=== PATIENT | female | born 1965 | race Caucasian/White ===

== ENCOUNTER 2020-07-11 07:57 | Outpatient (REF) | payer OTHER, SELFPAY ==
--- NOTE | 2020-07-11 08:04 | MM_ITS ---
EXAMINATION: BONE DENSITOMETRY CLINICAL INDICATION: Osteoporosis. COMPARISON: Previous BD dated 05/06/2017 and baseline BD dated 07/25/2009. TECHNIQUE: Using a [employer] DXA System (software version: 13.1) manufactured by [employer], dual-energy x-ray absorptiometry was performed of the lumbar spine and left hip. The images are of good technical quality. Summary results are attached. FINDINGS: AP SPINE L1-L2 (excluding L3 and L4): The data of L1-L4 has been changed to exclude the L3 and L4 vertebral bodies, because degenerative changes at these levels may cause overestimation of lumbar spine density. Current: BMD 0.890 g/cm2, Z-score -0.9, T-score -2.3, osteopenia, 4.5% decrease from previous, 14.0% decrease from baseline (<5% change is not significant). Prior: BMD 0.932 g/cm2. Baseline: BMD 1.035 g/cm2. LEFT FEMUR, NECK: Current: BMD 0.725 g/cm2, Z-score -0.9, T-score -2.2, osteopenia. Prior: BMD 0.754 g/cm2. Baseline: BMD 0.846 g/cm2. LEFT FEMUR, TOTAL: Current: BMD 0.736 g/cm2, Z-score -1.1, T-score -2.2, osteopenia, 1.1% decrease from previous, 13.1% decrease from baseline (<5% change is not significant). Prior: BMD 0.744 g/cm2. Baseline: BMD 0.847 g/cm2. IDENTIFIED RISK FACTORS: Early menopause, height loss, low body weight, secondary osteoporosis. HISTORY OF FRACTURE: None listed. MEDICATIONS: Calcium. MM/XR DEXA axial skeleton IMPRESSION: 1. DIAGNOSIS: Osteopenia based on the lowest T-score value of -2.3 in the lumbar spine applying World Health Organization criteria. 2. 10-YEAR FRACTURE RISK PREDICTION, FRAX: Major osteoporotic fracture (clinical spine, forearm, hip or shoulder) 6.5%. Hip fracture 1.2%. 3. Treatment Recommendations: NOF guidelines recommend consideration for treatment in postmenopausal women and men age 50 and older presenting with the following: -A hip or vertebral (clinical or morphometric) fracture. -T-score less than or equal to -2.5 at the femoral neck or spine after appropriate evaluation to exclude secondary causes. -Low bone mass at the hip or spine and a 10-year fracture probability by FRAX of greater than or equal to 3% for hip fracture or greater than or equal to 20% for major osteoporotic fracture based on the [place] adapted WHO algorithm. 4. Other Recommendations: All treatment decisions require clinical judgment and consideration of individual patient factors, including patient preferences, comorbidities, previous drug use, risk factors not captured in the FRAX model (e.g. frailty, falls, vitamin D deficiency, increased bone turnover, interval significant decline in bone density) and possible under or overestimation of fracture risk by FRAX. Additional medical evaluation for secondary cause of low bone mineral density may be appropriate. FUTURE SCAN RECOMMENDATION: People with diagnosed cases of osteoporosis or at high risk for fracture should have regular bone mineral density tests. For patients eligible for Medicare, routine testing is allowed once every 2 years. The testing frequency can be increased to one year for patients who have rapidly progressing disease, those who are receiving or discontinuing medical therapy to restore bone mass, or have additional risk factors.
== END 2020-07-11 07:58 | disposition home or self-care (01) ==
LOC: HO.MAMMO 07:57
PROVIDERS: PCP Nurse Practitioner Family; Visit Provider Nurse Practitioner Family
DX: M81.0 Age-related osteoporosis without current pathological fracture (principal)
CPT/HCPCS: 77080

== ENCOUNTER 2020-11-01 08:38 | Outpatient (REF) | payer OTHER, SELFPAY ==
--- NOTE | ~2020-11-01 | MM_ITS ---
EXAMINATION: MM SCREENING DIGITAL BREAST TOMOSYNTHESIS, BILATERAL CLINICAL INFORMATION: Screening. Asymptomatic. The lifetime risk of breast cancer based on the Tyrer-Cuzick Model is 6.1%. COMPARISON: Mammography: July 05, 2019 and studies dating back to September 23, 2011 TECHNIQUE: Digital mammography is performed in craniocaudal and mediolateral oblique views along with computer-aided detection (CAD). Digital breast tomosynthesis is performed in implant-displaced craniocaudal and implant-displaced mediolateral oblique views along with computer-aided detection (CAD). Synthesized 2D images are generated from the tomosynthesis. FINDINGS: The breasts are heterogeneously dense, which may obscure small masses (ACR BI-RADS breast composition Category c). There are no significant masses, abnormal calcifications, or other abnormalities. Retropectoral silicone implants seen bilaterally. MM/MM tomosynthesis screen imp BI IMPRESSION: There are no significant changes from prior study. ASSESSMENT: BI-RADS 1: Negative RECOMMENDATION: Routine annual mammography screening. This patient's information was entered into a reminder system with a target due date for their next mammogram.
== END 2020-11-01 08:39 | disposition home or self-care (01) ==
LOC: HO.MAMMO 08:38
PROVIDERS: PCP Nurse Practitioner Family; Visit Provider Nurse Practitioner Family
DX: Z12.31 Encounter for screening mammogram for malignant neoplasm of breast (principal)
CPT/HCPCS: 77063; 77067

== ENCOUNTER 2021-11-17 07:29 | Outpatient (REF) | payer OTHER, SELFPAY ==
--- NOTE | ~2021-11-17 | MM_ITS ---
EXAMINATION: MM SCREENING DIGITAL BREAST TOMOSYNTHESIS, BILATERAL CLINICAL INFORMATION: Screening. Asymptomatic. The lifetime risk of breast cancer based on the Tyrer-Cuzick Model is 6%. COMPARISON: Mammography: 11/01/2020, 07/05/2019, 05/12/2018 TECHNIQUE: Digital mammography is performed in craniocaudal and mediolateral oblique views along with computer-aided detection (CAD). Digital breast tomosynthesis is performed in implant-displaced craniocaudal and implant-displaced mediolateral oblique views along with computer-aided detection (CAD). Synthesized 2D images are generated from the tomosynthesis. FINDINGS: There are scattered areas of fibroglandular density (ACR BI-RADS breast composition Category b). Implant contours are smooth and similar to prior study. Parenchymal pattern is similar to prior exams. No interval mass or architectural abnormality or abnormal calcifications. The axilla and skin contours are unremarkable. MM/MM tomosynthesis screen imp BI IMPRESSION: No mammographic evidence of malignancy. ASSESSMENT: BI-RADS 1: Negative RECOMMENDATION: Routine annual mammography screening. This patient's information was entered into a reminder system with a target due date for their next mammogram.
== END 2021-11-17 07:30 | disposition home or self-care (01) ==
LOC: HO.MAMMO 07:29
PROVIDERS: PCP Nurse Practitioner Family; Visit Provider Nurse Practitioner Family
DX: Z12.31 Encounter for screening mammogram for malignant neoplasm of breast (principal)
CPT/HCPCS: 77063; 77067

== ENCOUNTER 2022-07-12 08:44 | Outpatient (REF) | payer OTHER, SELFPAY ==
--- NOTE | ~2022-07-12 | MM_ITS ---
EXAMINATION: BONE DENSITOMETRY CLINICAL INDICATION: Encounter for screening for osteoporosis. COMPARISON: Previous BD dated 07/11/2020 and baseline BD dated 07/25/2009. TECHNIQUE: Using a [employer] DXA System (software version: 13.1) manufactured by [employer], dual-energy x-ray absorptiometry was performed of the lumbar spine and left hip. The images are of good technical quality. Summary results are attached. FINDINGS: AP SPINE L1-L2 (excluding L3 and L4): The data of L1-L4 has been changed to exclude the L3 and L4 vertebral bodies, because degenerative sclerosis at these levels may cause overestimation of lumbar spine density. Current: BMD 0.875 g/cm2, Z-score -1.0, T-score -2.4, osteopenia, 1.7% decrease from previous, 15.5% decrease from baseline (<5% change is not significant). Prior: BMD 0.890 g/cm2. Baseline: BMD 1.035 g/cm2. LEFT FEMUR, NECK: Current: BMD 0.724 g/cm2, Z-score -0.8, T-score -2.3, osteopenia. Prior: BMD 0.725 g/cm2. Baseline: BMD 0.846 g/cm2. LEFT FEMUR, TOTAL: Current: BMD 0.732 g/cm2, Z-score -1.1, T-score -2.2, osteopenia, 0.5% decrease from previous, 13.6% decrease from baseline (<5% change is not significant). Prior: BMD 0.736 g/cm2. Baseline: BMD 0.847 g/cm2. IDENTIFIED RISK FACTORS: Early menopause, low body weight, secondary osteoporosis. HISTORY OF FRACTURE: None listed. MEDICATIONS: Calcium/multivitamin. MM/XR DEXA axial skeleton IMPRESSION: 1. DIAGNOSIS: Osteopenia based on the lowest T-score value of -2.4 in the lumbar spine applying World Health Organization criteria. 2. 10-YEAR FRACTURE RISK PREDICTION, FRAX: Major osteoporotic fracture (clinical spine, forearm, hip or shoulder) 7.5%. Hip fracture 1.3%. 3. Treatment Recommendations: NOF guidelines recommend consideration for treatment in postmenopausal women and men age 50 and older presenting with the following: -A hip or vertebral (clinical or morphometric) fracture. -T-score less than or equal to -2.5 at the femoral neck or spine after appropriate evaluation to exclude secondary causes. -Low bone mass at the hip or spine and a 10-year fracture probability by FRAX of greater than or equal to 3% for hip fracture or greater than or equal to 20% for major osteoporotic fracture based on the [place] adapted WHO algorithm. 4. Other Recommendations: All treatment decisions require clinical judgment and consideration of individual patient factors, including patient preferences, comorbidities, previous drug use, risk factors not captured in the FRAX model (e.g. frailty, falls, vitamin D deficiency, increased bone turnover, interval significant decline in bone density) and possible under or overestimation of fracture risk by FRAX. Additional medical evaluation for secondary cause of low bone mineral density may be appropriate. FUTURE SCAN RECOMMENDATION: People with diagnosed cases of osteoporosis or at high risk for fracture should have regular bone mineral density tests. For patients eligible for Medicare, routine testing is allowed once every 2 years. The testing frequency can be increased to one year for patients who have rapidly progressing disease, those who are receiving or discontinuing medical therapy to restore bone mass, or have additional risk factors.
== END 2022-07-12 08:45 | disposition home or self-care (01) ==
LOC: HO.MAMMO 08:44
PROVIDERS: PCP Nurse Practitioner Family; Visit Provider Nurse Practitioner Family
DX: Z13.820 Encounter for screening for osteoporosis (principal); Z78.0 Asymptomatic menopausal state
CPT/HCPCS: 77080

== ENCOUNTER 2022-11-23 07:19 | Outpatient (REF) | payer OTHER, SELFPAY ==
--- NOTE | ~2022-11-23 | MM_ITS ---
EXAMINATION: MM SCREENING DIGITAL BREAST TOMOSYNTHESIS, BILATERAL CLINICAL INFORMATION: Screening. Asymptomatic. The lifetime risk of breast cancer based on the Tyrer-Cuzick Model is 4%. COMPARISON: Mammography: 11/17/2021, 11/01/2020, 07/05/2019, 05/12/2018, 04/04/2017, 03/13/2016 TECHNIQUE: Digital mammography is performed in craniocaudal and mediolateral oblique views along with computer-aided detection (CAD). Digital breast tomosynthesis is performed in implant-displaced craniocaudal and implant-displaced mediolateral oblique views along with computer-aided detection (CAD). Synthesized 2D images are generated from the tomosynthesis. FINDINGS: There are scattered areas of fibroglandular density (ACR BI-RADS breast composition Category b). There are bilateral implants. The implant contours and similar to prior studies. Parenchymal pattern is similar to prior exams. There is minor parenchymal asymmetry medial left breast on implant displaced CC view similar to prior exams. There is no developing density or interval mass or architectural abnormality. The axilla and skin contours are unremarkable. MM/MM tomosynthesis screen imp BI IMPRESSION: No mammographic evidence of malignancy. ASSESSMENT: BI-RADS 2: Benign RECOMMENDATION: Routine annual mammography screening. This patient's information was entered into a reminder system with a target due date for their next mammogram.
== END 2022-11-23 07:20 | disposition home or self-care (01) ==
LOC: HO.MAMMO 07:19
PROVIDERS: PCP Nurse Practitioner Family; Visit Provider Nurse Practitioner Family
DX: Z12.31 Encounter for screening mammogram for malignant neoplasm of breast (principal)
CPT/HCPCS: 77063; 77067

== ENCOUNTER 2023-12-06 07:21 | Outpatient (REF) | payer OTHER, SELFPAY ==
--- NOTE | ~2023-12-06 | MM_ITS ---
EXAMINATION: MM SCREENING DIGITAL BREAST TOMOSYNTHESIS, BILATERAL CLINICAL INFORMATION: Screening. Asymptomatic. COMPARISON: Mammography: This study is compared with prior exams dating back to 2019. TECHNIQUE: Digital mammography is performed in craniocaudal and mediolateral oblique views along with computer-aided detection (CAD). Digital breast tomosynthesis is performed in implant-displaced craniocaudal and implant-displaced mediolateral oblique views along with computer-aided detection (CAD). Synthesized 2D images are generated from the tomosynthesis. FINDINGS: The breasts are heterogeneously dense, which may obscure small masses (ACR BI-RADS breast composition Category c). There are bilateral, mammographically intact, retropectoral silicone breast implants. There are no significant masses, abnormal calcifications, or other abnormalities. MM/MM tomosynthesis screen imp BI IMPRESSION: There are no significant changes from prior study. ASSESSMENT: BI-RADS BI-RADS 1 - Negative RECOMMENDATION: Routine annual mammography screening. 1 year F/U This patient's information was entered into a reminder system with a target due date for their next mammogram.
== END 2023-12-06 07:22 | disposition home or self-care (01) ==
LOC: HO.MAMMO 07:21
PROVIDERS: PCP Family Medicine; Visit Provider Nurse Practitioner Family
DX: Z12.31 Encounter for screening mammogram for malignant neoplasm of breast (principal)
CPT/HCPCS: 77063; 77067

== ENCOUNTER → 2023-12-06 07:30 | Outpatient (BNV) | payer OTHER, SELFPAY | PROVIDERS: PCP Family Medicine; Visit Provider Radiology Diagnostic Radiology | DX: Z12.31 Encounter for screening mammogram for malignant neoplasm of breast (principal) | CPT/HCPCS: 77063; 77067 ==

== ENCOUNTER 2024-12-11 07:26 | Outpatient (REF) | payer OTHER, SELFPAY ==
--- OUTSIDE RECORDS SUMMARY | 2024-12-11 07:29 | XMS_ITS | Data Portability ---
Author Organization [facility], [address] Address [address] [place] [address] Care Team Providers Care Drain Technician Name Role Phone BRANDY BAILEY Primary Care Provider [phone] Assessment No assessment recorded. Plan of Treatment Reminders Order Date Submit Date Provider Last Modified By Organization Details Last Modified Time Details Appointments None recorded. Lab None recorded. Referral None recorded. Procedures None recorded. Surgeries None recorded. Imaging None recorded. Medication Orders cyclobenzap rine 10 mg tablet 2022 023 [facility]/Ph[facility]acy #[id number], [address] [facility] [place], [address], 10:23:18 Patient TargetsNo targets recorded. Patient Instructions Encounter Date Encounter Id Patient Instructions Last Modified By Organization Details Last Modified Time 02/26/2023 [id number] getting back to normal after low back pain: care instructions [email or web address] Not available 02/26/2023 10:22:25 Take over the counter ibuprofen per package instructions as needed for pain. Take the muscle relaxer as prescribed if needed. Use caution with this medication since it may cause sedation. See printed instructions and work note. Follow-up with your doctor if no improvement in a few days. Seek Emergency Medical evaluation for any worsening symptoms. [email or web address] Not available 02/26/2023 10:24:42 Reason for Referral None Reported. Problems No Known Problems Medical Equipment None Reported. Allergies No known drug allergies Medications Name Sig Start Date Stop Date Status Note LastModified by Organization Details LastModified Time cyclobenzaprine 10 mg tablet Take 1 tablet 3 times a day by oral route as needed. 2022 active Not Available Not Available Not Avai lable Vitals Date Recorded Body height Body mass index (BMI) Body weight Pain severity - 0-10 verbal numeric rating [Score] - Reported Oxygen saturation Oxygen saturation in Arterial blood by Pulse oximetry Heart rate Respiratory rate Body temperature Systolic blood pressure Diastolic blood pressure Provider Name and Address Organization Details Last Updated DateTime 162.56 cm 18 kg/m2 86071.2 g 10 99 % 99 % 89 /min 16 /min 98.2 [degF] 108 mm[Hg] 71 mm[Hg] OSMIN RAMSEY PA [facility] 09:24:30 Social History Question Answer Notes LastModified by Organizat ion Details LastModified Time Tobacco Smoking Status Never Smoker OSMIN fortune PA [facility] 02/26/2023 09:22:34 What Is Your Level Of Alcohol Consumption? None Information not available 02/26/2023 Are You Currently Employed? Yes Information not available 02/26/2023 Do You Use Any Illicit Or Recreational Drugs? No Information not available 02/26/2023 Have You Recently Traveled Abroad? No Information not available 02/26/2023 Do You Or Have You Ever Used Any Other Forms Of Tobacco Or Nicotine? No Information not available 02/26/2023 Sex: Unknown Functional Status None recorded. Mental Status None recorded. Family History Relationship Description Onset Age of this Age Resolved Age Notes LastModified by Organization Details LastModified Time Father No current problems or disability Not available 02/26 09:22:20 Mother No current problems or disability Not available 02/26 09:22:20 Medical History No medical history recorded. Gynecological HistoryNo gynecological history recorded. Obstetrics History GPAL:G 0 P 0 0 0 0 Immunizations Vaccine Type Date Status Note Provider Nam e and Address Organization Details Recorded Time Influenza, MDCK, quadrivalent, PF 04/29/2022 completed OSMIN fortune PA - [facility] 02/26/2023 09:21:41 zoster recombinant 10/11/2018 completed OSMIN fortune PA - [facility] 02/26/2023 09:21:42 zoster recombinant 12/25/2018 completed OSMIN ROXY null, PA - [facility] 02/26/2023 09:21:42 COVID-19, mRNA, LNP-S, PF, 100 mcg/0.5mL dose or 50 mcg/0.25mL dose 11/22/2020 completed OSMIN ROXY null, PA - [facility] 02/26/2023 09:21:42 COVID-19, mRNA, LNP-S, PF, 100 mcg/0.5mL dose or 50 mcg/0.25mL dose 11/25/2021 completed OSMIN ROXY null, PA - [facility] 02/26/2023 09:21:42 COVID-19, mRNA, LNP-S, PF, 100 mcg/0.5mL dose or 50 mcg/0.25mL dose 12/20/2020 completed OSMIN ROXY null, PA - [facility] 02/26/2023 09:21:42 COVID-19, mRNA, LNP-S, PF, 100 mcg/0.5mL dose or 50 mcg/0.25mL dose 06/18/2021 completed OSMIN ROXY null, PA - [facility] 02/26/2023 09:21:42 COVID-19, mRNA, LNP-S, bivalent, PF, 50 mcg/0.5 mL or 25mcg/0.25 mL dose 06/14/2022 completed OSMIN ROXY null, PA - [facility] 02/26/2023 09:21:42 Tdap 01/11/2022 completed OSMIN ROXY null, PA - [facility] 02/26/2023 09:21:42 Influenza, split virus, quadrivalent, PF 04/02/2017 completed OSMIN ROXY null, PA - [facility] 02/26/2023 09:21:42 Influenza, split virus, quadrivalent, PF 04/10/2016 completed OSMIN ROXY null, PA - [facility] 02/26/2023 09:21:42 Influenza, split virus, quadrivalent, PF 04/13/2018 completed OSMIN ROXY null, PA - [facility] 02/26/2023 09:21:42 Influenza, split virus, quadrivalent, PF 04/27/2019 completed OSMINDorian fortune PA - [facility] 02/26/2023 09:21:42 Influenza, split virus, quadrivalent, PF 05/02/2021 completed OSMIN fortune PA - [facility] 02/26/2023 09:21:42 Past Encounters Encounter ID Performer Location Encounter Start Date Encounter Closed Date Diagnosis/Indication Diagnosis SNOMED-CT Code Diagnosis ICD10 Code Diagnosis Note [id number] [address] [facility] KELLIE Osorio [address] 10/11/2019 08:08:30 10/11/2019 09:00:34 [id number] [address] [facility] [place] Osorio [id number] 02/06/2019 10:42:10 02/06/2019 11:25:40 [id number] [address] [place] [address] [place] [address] 06/28/2019 08:19:03 06/28/2019 08:46:52 [id number] [address] [place] [address] [place] [address] 10/02/2021 12:03:14 10/02/2021 16:45:52 [id number] [address] [facility] [place] [address] 05/29/2016 08:42:46 05/29/2016 09:36:45 [id number] [address] [facility] [place] [address] 12/19/2017 15:30:43 12/19/2017 17:18:01 [id number] [address] [facility] [place] Osorio [address] 05/01/2019 13:54:16 05/01/2019 15:03:47 [id number] Valeria Painting MD [address] [facility] [place] Osorio [id number] 02/26/2023 09:11:05 02/26/2023 10:28:36 Low back strain [id number] S39.012A Health Concerns Section Related Observation LastModified by Organization Detai ls LastModified Time None Recorded Concern Status LastModified by Organization Details LastModified Time None Recorded Advance Directives Directive None Recorded Payers Encounter Date Sequence Insurance Name Policy Number Policy [place] Covered Member ID [place] Member ID Guarantor Name 05/01/2019 1 [facility] [id number] Marissa Cano Bright [id number] Marissa Jerome Bright 06/28/2019 1 [facility] [id number] Marissa Cano Bright [id number] Marissa Jerome Bright 10/11/2019 1 [facility] [id number] Marissa Cano Bright [id number] Marissa Jerome Bright 10/02/2021 1 [facility] [id number] Marissa Cano Bright [id number] Marissa M Bright 02/26/2023 1 [facility] [id number] Marissa Cano Bright [id number] Marissa Jerome Bright Notes Date Note Type Note Provider Name and Address Organization Details Recorded Time 3 text/html Back Pain/Injury UCReported bypatient.source of patient informationInformation obtained from patient; Patient arrived at Urgent Care ambulatory Location:lower back; pain is not radiating Quality:dull;tightness;musc le spasms Severity:interference with work Duration:1 days Context:Pain began after bending over in the shower. Alleviating Factors:NSAIDS; rest Aggravating Factors:bending over/standing up;movement/positioning Associated Symptoms:No fever, chills, dysuria, numbness or weakness of the extremities, bowel or bladder dysfunction or saddle anesthesia. Previous InjuryHistory of recurrent low back pain for years. Prior Imaging:Xray of LS spine in distant past.Notes:57 year old female presenting for evaluation of right lower back pain that does not radiate beginning yesterday when she bent over in the shower. The pain is worse with certain movements and she is having difficulty standing up straight. No numbness or weakness of the extremities. No bowel or bladder dysfunction. No saddle anesthesia. She has had similar symptoms on occasion for many years. Valeria Painting MD [address] [place], [address], [place] - [facility] 02/26/2023 10:32:49 OBGyn Episode No OBEpisode recorded.
== END 2024-12-11 07:27 | disposition home or self-care (01) ==
LOC: HO.MAMMO 07:26
PROVIDERS: PCP Nurse Practitioner Family; Visit Provider Nurse Practitioner Family
DX: Z12.31 Encounter for screening mammogram for malignant neoplasm of breast (principal)
CPT/HCPCS: 77063; 77067

== ENCOUNTER → 2024-12-11 07:30 | Outpatient (BNV) | payer OTHER, SELFPAY | PROVIDERS: PCP Nurse Practitioner Family; Visit Provider Internal Medicine | DX: Z12.31 Encounter for screening mammogram for malignant neoplasm of breast (principal) | CPT/HCPCS: 77063; 77067 ==